=== PATIENT | female | born 1960 | race Two or more races ===

== ENCOUNTER → 2017-09-06 | Outpatient (CLI) | payer OTHER ==
--- NOTE | 2017-09-06 15:52 | RAD ---
History: Foot pain for 3 months. Comparison: None. Findings: AP, lateral, and oblique views of the right foot. No acute fracture or dislocation is identified. Small plantar calcaneal enthesophyte is present. Impression: No acute osseous abnormality identified. Electronically signed by: Cristóbal Roblero MD (09/06/2017 3:49 PM) [id number]
== END | disposition home or self-care (01) ==
LOC: PMG 14:48
PROVIDERS: ATTEND Physician Assistant Medical
DX: M79.671 Pain in right foot (principal)
CPT/HCPCS: 73630

== ENCOUNTER → 2021-02-11 | Outpatient (CLI) | payer OTHER ==
--- NOTE | 2021-02-11 09:54 | RAD ---
CLINICAL HISTORY: Reason: RUQ ABDOMINAL PAIN / Spl. Instructions: / History: COMPARISON: None available. TECHNIQUE: Ultrasound of the right upper quadrant was performed. FINDINGS: The liver measures 13.5 cm in length in the right mid clavicular line. The hepatic margin is smooth and the hepatic echogenicity is normal. There are no focal liver lesions. Flow seen within the kimmie l veins. Small nonmobile gallstone or gallbladder polyp is seen within the gallbladder. There is no wall thic kening or pericholecystic fluid. There is no pain with direct transducer pressure over the gallbladd er. The common bile duct measures 0.3 cm. The pancreas is mostly obscured by overlying bowel gas.. The right kidney measures 8.9 cm cm in bipolar length. Normal renal cortical echogenicity. No focal r enal lesion. No hydronephrosis. Visualized portions of the abdominal aorta and inferior vena cava are unremarkable. There is no free fluid in the upper abdomen. IMPRESSION: Small nonmobile gallstone or polyp in the gallbladder without sonographic evidence for acute cholecys titis. Borderline small right kidney, can be correlated for possible underlying renal disease. Electronically signed by: Sergey Campa MD (02/11/2021 9:51 AM) [id number]
== END ==
LOC: US 07:42
PROVIDERS: ATTEND Physician Assistant Medical
DX: R10.11 Right upper quadrant pain (principal)
CPT/HCPCS: 76705

== ENCOUNTER → 2021-04-21 | Outpatient (CLI) | payer OTHER ==
--- NOTE | 2021-04-21 08:57 | RAD ---
EXAM: Abdomen series, 2 views. HISTORY: Cholecystectomy. COMPARISON: None. FINDINGS: A frontal view of the chest and frontal upright and supine views of the abdomen are obtaine d. There is no infiltrate, pleural infusion or pneumothorax. The heart is normal in size. There are c holecystectomy clips within the right upper quadrant. There is a small amount of colonic stool and ga s. There is no free air. There is no bowel obstruction. IMPRESSION: 1. Nonobstructive bowel gas pattern. 2. No acute pulmonary finding. Electronically signed by: Chanelle Simeon MD (04/21/2021 8:54 AM) [id number]
== END ==
LOC: RAD 08:13
PROVIDERS: ATTEND Physician Assistant Medical
DX: R10.11 Right upper quadrant pain (principal); Z90.49 Acquired absence of other specified parts of digestive tract
CPT/HCPCS: 74022